=== PATIENT | female | born 1980 | race African-American/Black ===

== ENCOUNTER 2020-04-28 03:10 | Emergency (ER) | payer MEDICARE, MEDICAID ==
[~2020-04-28] VITALS: Ht 165.1 cm; Wt 59.0 kg
[~2020-04-28 03:10] MED LIST: Blood Sugar Diagnostic TEST; INSASP SUBCUT; LEVVL SUBCUT
[2020-04-28] MEDS ORDERED: ONDANSETRON HCL 4MG/2ML INJ IV STA (03:50)
[2020-04-28] MEDS ORDERED: SODIUM CHLORIDE 0.9% 1,000 ML IV ONE ×2 (03:50)
[2020-04-28] MEDS ORDERED: FAMOTIDINE 20MG/2ML VIAL IV STA (03:50)
[2020-04-28 04:15] LABS: BASOPHILS % 0.4 % (0.0-2.0); EOSINOPHILS % 0.4 % (0.0-5.0); HEMATOCRIT. 44.2 % (36.0-48.0); HEMOGLOBIN. 14.4 g/dL (12.0-16.0); LYMPHOCYTES % 25.2 % (20.0-50.0); MEAN CORPUSCULAR HEMOGLOBIN 28.1 pg (28.0-32.0); MEAN CORPUSCULAR VOLUME 86.2 fL (81.0-99.0); MEAN PLATELET VOLUME 9.6 fl (7.4-10.4); MONOCYTES % 6.2 % (2.0-8.0); NEUTROPHILS % 67.8 % (40.0-76.0); PLATELET 318 x1000/uL (130-400); RED BLOOD CELL COUNT 5.13 mill/uL (4.2-5.4); RED CELL DISTRIBUTION WIDTH 14.3 % (11.6-14.6)
[2020-04-28 04:25] LABS: CHLORIDE 105 mEq/L (98-107)
[2020-04-28 04:32] LABS: BETA HYDROXYBUTYRATE 0.9 mMol/L (0.0-0.3)
[2020-04-28 04:33] LABS: HCG SCREEN NEGATIVE
[2020-04-28 06:07] LABS: CLARITY URINE TURBID (CLEAR); COLOR URINE YELLOW (YELLOW); KETONES URINE 2+ (NEGATIVE); LEUKOCYTE ESTERASE URINE 3+ (NEGATIVE); NITRITE URINE NEGATIVE (NEGATIVE); OCCULT BLOOD URINE 3+ (NEGATIVE); PH URINE 5.5 (4.5-8.0); PROTEIN URINE 2+ (NEGATIVE); SPECIFIC GRAVITY URINE 1.015 (1.005-1.030); UROBILINOGEN URINE 0.2 E.U./dL (0.2-1.0)
[2020-04-28 10:00] VITALS: BP 106/72
== END 2020-04-28 15:57 | disposition home or self-care (01) ==
LOC: ER 03:10
DX: E11.65 Type 2 diabetes mellitus with hyperglycemia (principal); R19.7 Diarrhea, unspecified; Z88.0 Allergy status to penicillin; Z79.899 Other long term (current) drug therapy; Z79.4 Long term (current) use of insulin; Z98.890 Other specified postprocedural states; Z90.09 Acquired absence of other part of head and neck
CPT/HCPCS: 36415; 80053; 81003; 81025; 82010; 83690; 84703; 85025; 87086; 93005; 96361; 96374; 96375; 99285; J2405; J3490; J7030

== ENCOUNTER 2021-01-23 15:45 | Inpatient (IN) | payer MEDICARE, MEDICAID ==
[~2021-01-23] VITALS: Ht 165.1 cm; Wt 59.9 kg
[2021-01-23] MEDS ORDERED: KETOROLAC 30MG/ML VIAL IV STA (16:27)
[2021-01-23] MEDS ORDERED: SODIUM CHLORIDE 0.9% 1,000 ML IV ONE (16:30)
[2021-01-23 17:49] LABS: BASOPHILS % 0.4 % (0.0-2.0); EOSINOPHILS % 0.1 % (0.0-5.0); HEMATOCRIT. 39.9 % (36.0-48.0); HEMOGLOBIN. 12.9 g/dL (12.0-16.0); LYMPHOCYTES % 14.7 % (20.0-50.0); MEAN CORPUSCULAR HEMOGLOBIN 26.4 pg (28.0-32.0); MEAN CORPUSCULAR VOLUME 81.7 fL (81.0-99.0); MEAN PLATELET VOLUME 8.9 fl (7.4-10.4); NEUTROPHILS % 74.8 % (40.0-76.0); PLATELET 371 x1000/uL (130-400); RED BLOOD CELL COUNT 4.88 mill/uL (4.2-5.4); RED CELL DISTRIBUTION WIDTH 15.8 % (11.6-14.6)
[2021-01-23 17:58] LABS: CHLORIDE 106 mEq/L (98-107)
[2021-01-23 17:59] LABS: INR 1.2; PROTHROMBIN TIME 12.6 sec (9.6-11.0)
[2021-01-23 18:10] LABS: HCG SCREEN NEGATIVE
[2021-01-23] MEDS ORDERED: ONDANSETRON HCL 4MG/2ML INJ IV STA (22:03)
[2021-01-23] MEDS ORDERED: MORPHINE SULFATE 4 MG/ML CPJ (NOT FOR IM USE) IV STA (22:03)
[2021-01-23] MEDS ORDERED: INS NPH/REG HM 70-30 100 UNITS/ML 10ML VIAL (HUMULIN 70-30) SUBCUT ONE (22:15)
[2021-01-23] MEDS ORDERED: METHYLPREDNISOLONE SOD SUCC 125 MG/2 ML VIAL IV ONE (22:15)
[2021-01-24 02:15] LABS: CLARITY URINE TURBID (CLEAR); COLOR URINE YELLOW (YELLOW); KETONES URINE 3+ (NEGATIVE); LEUKOCYTE ESTERASE URINE 2+ (NEGATIVE); NITRITE URINE NEGATIVE (NEGATIVE); OCCULT BLOOD URINE 3+ (NEGATIVE); PROTEIN URINE 1+ (NEGATIVE); SPECIFIC GRAVITY URINE 1.027 (1.005-1.030); UROBILINOGEN URINE 0.2 E.U./dL (0.2-1.0)
[2021-01-24] MEDS ORDERED: ONDANSETRON HCL 4MG/2ML INJ IV NR (02:30)
[2021-01-24] MEDS ORDERED: KETOROLAC 30MG/ML VIAL IV NR (02:30)
[2021-01-24] MEDS ORDERED: MORPHINE SULFATE 4 MG/ML CPJ (NOT FOR IM USE) IV NR (02:30)
[2021-01-24] MEDS ORDERED: METHYLPREDNISOLONE SOD SUCC 125 MG/2 ML VIAL IV NR (02:30)
[2021-01-24] MEDS ORDERED: APIX5TAB PO (16:56)
[2021-01-24] MEDS ORDERED: *PATIENT'S OWN MEDICATION STORAGE XX SCH (17:15)
[2021-01-24] MEDS ORDERED: DEXTROSE 50% WATER 50ML SYRINGE IV PRN (17:15)
[2021-01-24] MEDS: SODIUM CHLORIDE 0.9% 100 ML IV SCH ×4 (17:15→23:30)
[2021-01-24] MEDS: BLOOD SUGAR DIAGNOSTIC STRIP TEST SCH ×2 (17:20→21:00)
[2021-01-24] MEDS ORDERED: BLOOD SUGAR DIAGNOSTIC STRIP TEST SCH (17:20)
[2021-01-24 18:36] VITALS: BP 100/75
[2021-01-24] MEDS: INSULIN LISPRO 100 UNITS/ML SUBCUT SCH ×2 (18:57→21:00)
[2021-01-24 20:00] VITALS: BP 107/76
[2021-01-25] VITALS: BP 123/80
[2021-01-25] MEDS: LEVOFLOXACIN 500MG TABLET PO SCH ×2 (03:19→17:42)
[2021-01-25 04:00] VITALS: BP 132/73
[2021-01-25] MEDS: BLOOD SUGAR DIAGNOSTIC STRIP TEST SCH ×4 (07:20→21:16)
[2021-01-25 08:00] VITALS: BP 112/73
[2021-01-25] MEDS: INSULIN LISPRO 100 UNITS/ML SUBCUT SCH ×4 (08:50→21:19)
[2021-01-25] MEDS ORDERED: SODIUM POLYSTYRENE SULFONATE 15 G/60 ML BOT PO NR (09:00)
[2021-01-25 12:00] VITALS: BP 105/67
[2021-01-25] MEDS: METRONIDAZOLE 500MG TABLET PO SCH ×2 (14:00→22:16)
[2021-01-25 16:00] VITALS: BP 126/85
[2021-01-25 16:28] LABS: BASOPHILS % 0.6 % (0.0-2.0); EOSINOPHILS % 0.5 % (0.0-5.0); HEMATOCRIT. 33.2 % (36.0-48.0); HEMOGLOBIN. 10.7 g/dL (12.0-16.0); LYMPHOCYTES % 30.8 % (20.0-50.0); MEAN CORPUSCULAR HEMOGLOBIN 25.4 pg (28.0-32.0); MEAN CORPUSCULAR VOLUME 78.8 fL (81.0-99.0); MEAN PLATELET VOLUME 9.5 fl (7.4-10.4); MONOCYTES % 8.1 % (2.0-8.0); PLATELET 338 x1000/uL (130-400); RED BLOOD CELL COUNT 4.22 mill/uL (4.2-5.4)
[2021-01-25 16:38] LABS: CHLORIDE 110 mEq/L (98-107)
[2021-01-25] MEDS: SODIUM CHLORIDE 0.9% 100 ML IV SCH ×3 (17:50→22:17)
[2021-01-25] MEDS ORDERED: LORAZEPAM 2MG/ML CPJ IV PRN (18:30)
[2021-01-25] MEDS ORDERED: APIXABAN 5 MG TABLET PO SCH (18:30)
[2021-01-25] MEDS ORDERED: IPRATROPIUM/ALBUTEROL 0.5-3(2.5)MG/3ML NEB HHN PRN (18:30)
[2021-01-25] MEDS ORDERED: TEMAZEPAM 15MG CAPSULE PO PRN (18:30)
[2021-01-25] MEDS ORDERED: ACETAMINOPHEN 325MG TABLET PO PRN (18:30)
[2021-01-25] MEDS ORDERED: BISACODYL 10MG SUPP PR PRN (18:30)
[2021-01-25] MEDS ORDERED: CLONIDINE 0.1MG TABLET PO PRN (18:30)
[2021-01-25] MEDS ORDERED: ACETAMINOPHEN 650MG SUPP PR PRN (18:30)
[2021-01-25] MEDS ORDERED: MORPHINE SULFATE 2 MG/ML CPJ (NOT FOR IM USE) IV PRN (18:30)
[2021-01-25] MEDS ORDERED: DIPHENHYDRAMINE 50MG/ML VIAL IV PRN (18:30)
[2021-01-25 20:00] VITALS: BP 120/70
[2021-01-25] MEDS: FAMOTIDINE 20MG TABLET PO SCH (21:15)
[2021-01-26] VITALS: BP 107/71
[2021-01-26 01:31] LABS: VITAMIN B12 SERUM 304 pg/mL (211-911)
[2021-01-26 04:00] VITALS: BP 110/74
[2021-01-26] MEDS: METRONIDAZOLE 500MG TABLET PO SCH ×3 (06:00→22:06)
[2021-01-26 06:35] LABS: BASOPHILS % 0.3 % (0.0-2.0); EOSINOPHILS % 0.6 % (0.0-5.0); HEMOGLOBIN. 10.3 g/dL (12.0-16.0); LYMPHOCYTES % 36.7 % (20.0-50.0); MEAN CORPUSCULAR HEMOGLOBIN 25.5 pg (28.0-32.0); MEAN CORPUSCULAR VOLUME 79.1 fL (81.0-99.0); MEAN PLATELET VOLUME 9.2 fl (7.4-10.4); MONOCYTES % 11.8 % (2.0-8.0); NEUTROPHILS % 50.6 % (40.0-76.0); PLATELET 321 x1000/uL (130-400); RED BLOOD CELL COUNT 4.04 mill/uL (4.2-5.4); RED CELL DISTRIBUTION WIDTH 15.7 % (11.6-14.6)
[2021-01-26 06:44] LABS: CHLORIDE 112 mEq/L (98-107)
[2021-01-26 06:55] LABS: LDL CHOLESTEROL 84 mg/dL (5-100)
[2021-01-26 06:57] LABS: T4 FREE 1.22 ng/dL (0.76-1.46)
[2021-01-26 06:58] LABS: HDL CHOLESTEROL 46 mg/dL (40-59)
[2021-01-26] MEDS: BLOOD SUGAR DIAGNOSTIC STRIP TEST SCH ×4 (07:30→21:08)
[2021-01-26] MEDS: SODIUM CHLORIDE 0.9% 100 ML IV SCH (07:30)
[2021-01-26] MEDS: INSULIN LISPRO 100 UNITS/ML SUBCUT SCH ×4 (07:30→21:10)
[2021-01-26 08:00] VITALS: BP 111/68
[2021-01-26] MEDS ORDERED: POTASSIUM CHLORIDE 20MEQ TABLET SR PO NR (11:00)
[2021-01-26 12:00] VITALS: BP 111/72
[2021-01-26] MEDS ORDERED: GADOTERATE MEGLUMINE 5 MMOL/10 ML VIAL IV ONE (15:26)
[2021-01-26] MEDS ORDERED: IOHEXOL-300 100 ML BOTTLE ONE (16:30)
[2021-01-26 17:30] VITALS: BP 114/53
[2021-01-26] MEDS: LEVOFLOXACIN 500MG TABLET PO SCH (17:33)
[2021-01-26 20:00] VITALS: BP 117/77
[2021-01-26] MEDS: FAMOTIDINE 20MG TABLET PO SCH (21:08)
[2021-01-27] VITALS: BP 105/75
[2021-01-27 04:00] VITALS: BP 120/78
[2021-01-27] MEDS: METRONIDAZOLE 500MG TABLET PO SCH ×3 (05:07→22:29)
[2021-01-27 06:27] LABS: BASOPHILS % 0.6 % (0.0-2.0); EOSINOPHILS % 0.5 % (0.0-5.0); HEMATOCRIT. 32.5 % (36.0-48.0); HEMOGLOBIN. 10.6 g/dL (12.0-16.0); LYMPHOCYTES % 29.4 % (20.0-50.0); MEAN CORPUSCULAR HEMOGLOBIN 25.7 pg (28.0-32.0); MEAN PLATELET VOLUME 9.3 fl (7.4-10.4); MONOCYTES % 8.3 % (2.0-8.0); NEUTROPHILS % 61.2 % (40.0-76.0); PLATELET 323 x1000/uL (130-400); RED BLOOD CELL COUNT 4.11 mill/uL (4.2-5.4)
[2021-01-27 06:30] LABS: CHLORIDE 108 mEq/L (98-107)
[2021-01-27] MEDS: BLOOD SUGAR DIAGNOSTIC STRIP TEST SCH ×4 (07:38→21:00)
[2021-01-27 08:00] VITALS: BP 128/80
[2021-01-27] MEDS: INSULIN LISPRO 100 UNITS/ML SUBCUT SCH ×4 (09:47→23:09)
[2021-01-27 12:00] VITALS: BP 128/88
[2021-01-27] MEDS: LEVOFLOXACIN 500MG TABLET PO SCH (17:47)
[2021-01-27 20:00] VITALS: BP 131/76
[2021-01-27] MEDS: FAMOTIDINE 20MG TABLET PO SCH (22:28)
[2021-01-28] VITALS: BP 115/75
[2021-01-28 04:00] VITALS: BP 112/72
[2021-01-28] MEDS: METRONIDAZOLE 500MG TABLET PO SCH ×2 (06:39→13:43)
[2021-01-28] MEDS: BLOOD SUGAR DIAGNOSTIC STRIP TEST SCH ×4 (07:42→21:31)
[2021-01-28 08:00] VITALS: BP 109/73
[2021-01-28] MEDS: INSULIN LISPRO 100 UNITS/ML SUBCUT SCH ×4 (08:49→21:45)
[2021-01-28 09:00] LABS: BASOPHILS % 0.3 % (0.0-2.0); EOSINOPHILS % 0.5 % (0.0-5.0); HEMATOCRIT. 32.2 % (36.0-48.0); HEMOGLOBIN. 10.7 g/dL (12.0-16.0); LYMPHOCYTES % 27.8 % (20.0-50.0); MEAN CORPUSCULAR HEMOGLOBIN 26.2 pg (28.0-32.0); MEAN CORPUSCULAR VOLUME 79.1 fL (81.0-99.0); MEAN PLATELET VOLUME 8.7 fl (7.4-10.4); MONOCYTES % 9.5 % (2.0-8.0); NEUTROPHILS % 61.9 % (40.0-76.0); PLATELET 335 x1000/uL (130-400); RED BLOOD CELL COUNT 4.07 mill/uL (4.2-5.4); RED CELL DISTRIBUTION WIDTH 15.9 % (11.6-14.6)
[2021-01-28 09:03] LABS: CHLORIDE 107 mEq/L (98-107)
[2021-01-28] MEDS ORDERED: FLAS1EAC2 TP (14:01)
[2021-01-28] MEDS ORDERED: INSLIS SUBCUT (14:01)
[2021-01-28] MEDS ORDERED: LANC1COM2 MC (14:01)
[2021-01-28] MEDS: APIXABAN 5 MG TABLET PO SCH (17:33)
[2021-01-28] MEDS: LEVOFLOXACIN 500MG TABLET PO SCH (17:34)
[2021-01-28 20:00] VITALS: BP 105/65
[2021-01-28] MEDS: FAMOTIDINE 20MG TABLET PO SCH (21:26)
[2021-01-29] VITALS (7 sets, daily range): BP systolic 104–123; BP diastolic 60–79
[2021-01-29] MEDS: BLOOD SUGAR DIAGNOSTIC STRIP TEST SCH ×4 (07:20→21:00)
[2021-01-29] MEDS: INSULIN LISPRO 100 UNITS/ML SUBCUT SCH ×4 (07:50→22:37)
[2021-01-29] MEDS: APIXABAN 5 MG TABLET PO SCH ×2 (10:15→18:05)
[2021-01-29] MEDS: LEVOFLOXACIN 500MG TABLET PO SCH (18:05)
[2021-01-29] MEDS: FAMOTIDINE 20MG TABLET PO SCH ×2 (21:00→22:03)
[2021-01-30] VITALS: BP 117/72
[2021-01-30 04:00] VITALS: BP 120/75
[2021-01-30] MEDS: BLOOD SUGAR DIAGNOSTIC STRIP TEST SCH (06:39)
[2021-01-30 08:00] VITALS: BP 118/72
[2021-01-30] MEDS: APIXABAN 5 MG TABLET PO SCH (08:36)
[2021-01-30] MEDS: INSULIN LISPRO 100 UNITS/ML SUBCUT SCH (08:49)
== END 2021-01-30 11:51 | disposition home or self-care (01) | DRG 58 ==
LOC: ER 15:45 → 6EST 23:47 → ENRESERV 01-24 15:19
PROVIDERS: ADMIT Internal Medicine; ATTEND Internal Medicine
DX: G35 Multiple sclerosis (principal); R53.2 Functional quadriplegia; N39.0 Urinary tract infection, site not specified; R19.7 Diarrhea, unspecified; K76.9 Liver disease, unspecified; K62.89 Other specified diseases of anus and rectum; E87.5 Hyperkalemia; N20.0 Calculus of kidney; K76.89 Other specified diseases of liver; D18.03 Hemangioma of intra-abdominal structures; Z20.822 Contact with and (suspected) exposure to COVID-19; G89.29 Other chronic pain; N31.9 Neuromuscular dysfunction of bladder, unspecified; B96.1 Klebsiella pneumoniae [K. pneumoniae] as the cause of diseases classified elsewhere; M54.9 Dorsalgia, unspecified; R32 Unspecified urinary incontinence; D64.9 Anemia, unspecified; E11.65 Type 2 diabetes mellitus with hyperglycemia; Z79.01 Long term (current) use of anticoagulants; Z74.01 Bed confinement status; Z99.3 Dependence on wheelchair; Z79.4 Long term (current) use of insulin; Z86.711 Personal history of pulmonary embolism; Z88.0 Allergy status to penicillin; Z79.899 Other long term (current) drug therapy; Z87.442 Personal history of urinary calculi
CPT/HCPCS: 36415; 70553; 71045; 72146; 72148; 72156; 74176; 74177; 74181; 76700; 80048; 80053; 80061; 81003; 82105; 82378; 82607; 82962; 83036; 84439; 84443; 84703; 85025; 87077; 87186; 87426; 93970; 97162; 97530; 99285; A9577; J1200; J1815; J7030; J7050; Q9967; A4315

== ENCOUNTER 2021-11-13 18:53 | Emergency (ER) | payer MEDICARE, MEDICAID ==
[~2021-11-13] VITALS: Ht 160 cm; Wt 50.0 kg
[~2021-11-13 18:53] MED LIST changes: +APIX5TAB PO; +FLAS1EAC2 TP; +INSLIS SUBCUT; +LANC1COM2 MC
[2021-11-14 17:33] VITALS: BP 113/75
== END 2021-11-14 18:00 ==
LOC: ER 18:53
DX: M25.511 Pain in right shoulder (principal); E11.9 Type 2 diabetes mellitus without complications; R51.9 Headache, unspecified; Z88.0 Allergy status to penicillin; Z79.899 Other long term (current) drug therapy; Z98.890 Other specified postprocedural states; W05.0XXA Fall from non-moving wheelchair, initial encounter; Y93.89 Activity, other specified; Y92.89 Other specified places as the place of occurrence of the external cause; Y99.8 Other external cause status
CPT/HCPCS: 71045; 73030; 82962; 99285